=== PATIENT | female | born 1955 | race Caucasian/White ===

== ENCOUNTER 2016-09-19 11:59 | Emergency (ER) | payer BC ==
[2016-09-19 13:20] VITALS: BP 126/69
--- NOTE | 2016-09-19 13:48 | UC ---
Throat Pain/Nasal Pedro Luis HPI - HPI Summary HPI Summary: complaint of cough and nasal congestion that started 3-4 days ago headaches more on left than right sore throat left ear pain when she coughs feel raspy hearing wheezing occasionally in chest denies fever but has had chills took tylenol with some relief of headache hx of pneumothorax -with surgical repair 5 years ago and pneumonia multiple times - History of Current Complaint Chief Complaint: UCRespiratory Stated Complaint: COUGH,SINUS COMPLAINT Time Seen by Provider: 09/19/16 13:41 Hx Obtained From: Patient Hx Last Menstrual Period: 2002 - Allergies/Home Medications Allergies/Adverse Reactions: Allergies Allergy/AdvReac Type Severity Reaction Status Date / Time No Known Allergies Allergy Verified 09/19/16 13:20 PMH/Surg Hx/FS Hx/Imm Hx Previously Healthy: Yes Endocrine History Of: Denies: Diabetes Cardiovascular History Of: Denies: Cardiac Disorders, Hypertension Respiratory History Of: Denies: Asthma Cancer History Of: Denies: Breast Cancer - Surgical History Surgical History: Yes Surgery Procedure, Year, and Place: lung - pneumothorax 1992 - Family History Known Family History: Negative: Cardiac Disease, Hypertension, Diabetes - Social History Occupation: Retired Alcohol Use: Occasionally Substance Use Type: None Smoking Status (MU): Former Smoker Type: Cigarettes Amount Used/How Often: 1/4 PPD Length of Time of Smoking/Using Tobacco: 10 Years Have You Smoked in the Last Year: No When Did the Patient Quit Smoking/Using Tobacco: ~1988 - Immunization History Most Recent Influenza Vaccination: Not the season Most Recent Tetanus Shot: 09/29/13 Review of Systems Constitutional: Negative Skin: Negative Eyes: Negative ENT: Sore Throat, Ear Ache, Nasal Discharge Respiratory: Cough Cardiovascular: Negative Gastrointestinal: Negative Genitourinary: Negative Motor: Negative Neurovascular: Negative Musculoskeletal: Negative Neurological: Negative Psychological: Negative All Other Systems Reviewed And Are Negative: Yes Physical Exam Triage Information Reviewed: Yes Appearance: No Pain Distress, Well-Nourished Vital Signs: Initial Vital Signs Temp 98.8 F 09/19/16 13:14 Pulse 83 09/19/16 13:14 Resp 20 09/19/16 13:14 BP 126/69 09/19/16 13:14 Pulse Ox 100 09/19/16 13:14 Vital Signs Reviewed: Yes Eyes: Positive: Conjunctiva Clear ENT: Positive: Pharyngeal erythema, Nasal congestion, Nasal drainage, TMs normal. Negative: Tonsillar swelling Neck: Positive: No Lymphadenopathy Respiratory: Positive: Rhonchi - in LLL, Wheezing - throughout Cardiovascular: Positive: RRR, No Murmur, Pulses Normal Abdomen Description: Positive: Nontender, Soft Bowel Sounds: Positive: Present Musculoskeletal: Positive: No Edema Neurological: Positive: Alert Psychological Exam: Normal Skin Exam: Normal Throat Pain/Nasal Course/Dx - Course Course Of Treatment: exam completed. will treat with zpack steriods and aluterol d/t wheezing and rhonchi followup with PCP. chest x-ray negative - Differential Dx/Diagnosis Differential Diagnosis/HQI/PQRI: URI, Other - bronchitis, pneumonia Provider Diagnoses: bronchitis Discharge - Discharge Plan Condition: Stable Disposition: HOME Prescriptions: Albuterol HFA INHALER* [Ventolin HFA Inhaler*] 2 puff INH Q4H PRN #1 mdi PRN Reason: Wheezing Azithromycin TAB* [Zithromax TAB (Z-MARIBEL) 250 mg #6 tabs] 2 tab PO .TODAY, THEN 1 DAILY #1 maribel predniSONE TAB* [Deltasone TAB*] 50 mg PO DAILY #5 tab Patient Education Materials: Acute Bronchitis (ED) Referrals: Zee Mayorga MD [Primary Care Provider] - [facility] [place]] Additional Instructions: Please take antibiotic as directed Use your albuterol inhaler every 4-6 hours when needed for wheezing, shortness of breath or uncontrolled coughing. Increase fluids and rest Take acetaminophen or ibuprofen for fever or pain Please review your discharge instructions. If your symptoms do not improve please call your primary care provider or return to urgent care.
[2016-09-19] MEDS ORDERED: Albuterol/Ipratropium NEB.SOL* Albuterol 2.5 MG/Ipratropium 0.5 MG 3 ML INH ONE (13:54)
--- NOTE | 2016-09-19 14:05 | RAD ---
INDICATION: Cough and chills. COMPARISON: There are no prior studies available for comparison. TECHNIQUE: Dual-energy PA and lateral views of the chest were obtained. FINDINGS: The heart is within normal limits in size. Mediastinal and hilar contours appear within normal limits. The lungs are hyperinflated and clear. No pleural effusion is seen. IMPRESSION: NO EVIDENCE FOR ACUTE FINDING.
== END 2016-09-19 14:35 | disposition home or self-care (01) ==
LOC: UCCORT 11:59
DX: J40 Bronchitis, not specified as acute or chronic (principal); F17.210 Nicotine dependence, cigarettes, uncomplicated
CPT/HCPCS: 71020; 99212; A9270-GY; G0463

== ENCOUNTER 2017-04-06 14:04 | Emergency (ER) | payer BC ==
[2017-04-06 14:14] VITALS: BP 134/64
--- NOTE | 2017-04-06 14:30 | UC ---
Headache HPI - HPI Summary HPI Summary: 61 yo female with headache since 6 AM mild initially primarily left temporal about 10 AM developed bilateral jaw paresthesias For the past 2 hours MCBRIDE has been 8/10 some photophobia no n/v/d no f/c no neck pain or stiffness no cp or sob - History Of Current Complaint Chief Complaint: UCGeneralIllness Stated Complaint: HEADACHE LIGHT HEADED TINGLING IN FACE Time Seen by Provider: 04/06/17 14:07 Hx Obtained From: Patient Hx Last Menstrual Period: 2002 Onset/Duration: Gradual Onset, Lasting Hours Onset Of Symptoms: Gradual Initially Headache Was: "Worst Headache Ever" - no hx of similar MCBRIDE, Mild Currently Pain Is: Current Pain Scale(0-10)= - 8 Pain Intensity: 8 Pain Scale Used: 0-10 Numeric Timing: Constant Character: Dull, Throbbing Location of Headache: Temporal Allevating Factors: Nothing Associated Signs And Symptoms: Positive: Dizziness - Allergies/Home Medications Allergies/Adverse Reactions: Allergies Allergy/AdvReac Type Severity Reaction Status Date / Time No Known Allergies Allergy Verified 04/06/17 14:09 Home Medications: Home Medications NK [No Home Medications Reported] 04/06/17 [History Confirmed 04/06/17] PMH/Surg Hx/FS Hx/Imm Hx Previously Healthy: Yes - Surgical History Surgical History: Yes Surgery Procedure, Year, and Place: lung - pneumothorax 1992 - Family History Known Family History: Negative: Cardiac Disease, Hypertension, Diabetes - Social History Alcohol Use: None Substance Use Type: None Smoking Status (MU): Former Smoker Type: Cigarettes Amount Used/How Often: 1/4 PPD Length of Time of Smoking/Using Tobacco: 10 Years Have You Smoked in the Last Year: No When Did the Patient Quit Smoking/Using Tobacco: ~1988 - Immunization History Most Recent Influenza Vaccination: Not the season Most Recent Tetanus Shot: 09/29/13 Review of Systems Constitutional: Negative Skin: Negative Eyes: Negative ENT: Negative Respiratory: Negative Cardiovascular: Negative Gastrointestinal: Negative Genitourinary: Negative Motor: Negative Neurovascular: Negative Musculoskeletal: Negative Neurological: Headache Psychological: Negative All Other Systems Reviewed And Are Negative: Yes Physical Exam Triage Information Reviewed: Yes Appearance: Well-Appearing, No Pain Distress, Well-Nourished Vital Signs: Initial Vital Signs Temp 98.6 F 04/06/17 14:09 Pulse 75 04/06/17 14:09 Resp 20 04/06/17 14:09 BP 134/64 04/06/17 14:09 Pulse Ox 100 04/06/17 14:09 Vital Signs Reviewed: Yes Eyes: Positive: Conjunctiva Clear ENT Exam: Other - LEFT temporal artery tenderness ENT: Positive: Normal ENT inspection, Hearing grossly normal, Nasal congestion, TMs normal. Negative: Nasal drainage, Trismus, Muffled/hoarse voice Dental Exam: Normal Neck: Positive: Supple, Nontender Respiratory: Positive: Lungs clear, Normal breath sounds, No respiratory distress Cardiovascular: Positive: RRR, No Murmur Musculoskeletal: Positive: Strength Intact, ROM Intact, No Edema Neurological: Positive: Alert, Muscle Tone Normal, Other: - cn2-12 intact normal gait fundi benign Psychological Exam: Normal Skin Exam: Normal Diagnostics - EKG Cardiac Rate: NL Cardiac Rhythm: Sinus: Normal Ectopy: None ST Segment: Normal - normal EKG Headache Course/Dx - Course Course Of Treatment: d/w Lora Hogan PEDIATRIC CLINICAL NURSE SPECIALIST. accepts pt [facility]. decline EMS. AMA signed - Differential Dx/Diagnosis Differential Diagnosis/HQI/PQRI: Subarachnoid Hemorrhage, Temporal Arteritis, Other Provider Diagnoses: Headache of uncertain cause Discharge - Discharge Plan Condition: Fair Disposition: TRANS HIGHER LVL OF CARE FAC
== END 2017-04-06 14:45 | disposition short-term general hospital (02) ==
LOC: UCCORT 14:04
DX: R51 Headache (principal); Z87.891 Personal history of nicotine dependence
CPT/HCPCS: 93005; 99212; G0463

== ENCOUNTER 2017-09-21 14:48 | Emergency (ER) | payer BC ==
[2017-09-21 17:24] VITALS: BP 123/73
[2017-09-21] MEDS ORDERED: Acetaminophen TAB* 325 MG PO ONE (17:38)
--- NOTE | 2017-09-21 17:38 | UC ---
FLU HPI - HPI Summary HPI Summary: Pt c/o of sudden onset of fever, chills, body aches X 2 days. Has known exposure to flu. - History of Current Complaint Chief Complaint: UCGeneralIllness Stated Complaint: FEVER, LT HEADED, ACHY Time Seen by Provider: 09/21/17 17:14 Hx Obtained From: Patient Hx Last Menstrual Period: 2002 ?: No Onset/Duration: Sudden Onset, Lasting Days, Still Present Severity Currently: Mild Severity Initially: Mild Pain Intensity: 6 Associated Signs & Symptoms: Positive: Fever, Myalgia, Headache Related Hx: Possible Flu/Infectious Exposure - Risk Factors Influenza Risk Factors: Negative - Allergy/Home Medications Allergies/Adverse Reactions: Allergies Allergy/AdvReac Type Severity Reaction Status Date / Time No Known Allergies Allergy Verified 09/21/17 17:19 PMH/Surg Hx/FS Hx/Imm Hx Previously Healthy: Yes - Surgical History Surgical History: Yes Surgery Procedure, Year, and Place: lung - pneumothorax 1992 - Family History Known Family History: Negative: Cardiac Disease, Hypertension, Diabetes - Social History Occupation: Employed Full-time Lives: With Family Alcohol Use: Occasionally Substance Use Type: None Smoking Status (MU): Former Smoker Type: Cigarettes Amount Used/How Often: 1/4 PPD Length of Time of Smoking/Using Tobacco: 10 Years Have You Smoked in the Last Year: No When Did the Patient Quit Smoking/Using Tobacco: ~1988 - Immunization History Most Recent Influenza Vaccination: Not the season Most Recent Tetanus Shot: 09/29/13 Review of Systems Constitutional: Fever, Chills, Fatigue Skin: Negative Eyes: Negative ENT: Negative Respiratory: Negative Cardiovascular: Negative Gastrointestinal: Negative Genitourinary: Negative Motor: Negative Neurovascular: Negative Musculoskeletal: Myalgia Neurological: Headache Psychological: Negative Is Patient Immunocompromised?: No All Other Systems Reviewed And Are Negative: Yes Physical Exam Triage Information Reviewed: Yes Appearance: Ill-Appearing Vital Signs: Initial Vital Signs Temp 100.3 F 09/21/17 17:19 Pulse 114 09/21/17 17:19 Resp 16 09/21/17 17:19 BP 123/73 09/21/17 17:19 Pulse Ox 99 09/21/17 17:19 Vital Signs Reviewed: Yes Eye Exam: Normal ENT Exam: Normal Dental Exam: Normal Neck exam: Normal Respiratory Exam: Normal Cardiovascular Exam: Normal Musculoskeletal Exam: Normal Neurological Exam: Normal Psychological Exam: Normal Skin Exam: Normal Diagnostics - Laboratory Diagnostic Studies Completed/Ordered: negative rapid flu Flu Course/Dx - Differential Dx/Diagnosis Differential Diagnosis/HQI/PQRI: Influenza, Upper Respiratory Infection Provider Diagnoses: Viral syndrome Discharge - Discharge Plan Condition: Stable Disposition: HOME Prescriptions: Oseltamivir CAP* [Tamiflu CAP*] 75 mg PO Q12H #10 cap Patient Education Materials: Viral Syndrome (ED) Referrals: Patricia Mendoza MD [Primary Care Provider] - If Needed
== END 2017-09-21 17:50 | disposition home or self-care (01) ==
LOC: UCCORT 14:48
DX: B34.9 Viral infection, unspecified (principal); Z20.828 Contact with and (suspected) exposure to other viral communicable diseases; Z87.891 Personal history of nicotine dependence
CPT/HCPCS: 87502; 99212; A9270-GY; G0463

== ENCOUNTER 2017-09-24 09:55 | Emergency (ER) | payer BC ==
[2017-09-24 11:55] VITALS: BP 105/76
[2017-09-24] MEDS ORDERED: diPHENhydraMINE LIQ* 12.5 MG/5 ML UDC PO ONE (12:43)
--- NOTE | 2017-09-24 12:50 | UC ---
Skin Complaint HPI - HPI Summary HPI Summary: pt dx flu like illness and was tx with tamiflu. she took it for 2.5 days. today , she noted her palms to be itchy and red. after showering she became more red and itchy. no cough or sob. no n/v/d. no other new exposures or medications. didn't take the tamiflu today. notes flu s/s's improving with only mild fever and achy. - History of Current Complaint Chief Complaint: UCAllergicReaction Time Seen by Provider: 09/24/17 12:32 Stated Complaint: POSSIBLE ALLERGIC REACTION Hx Obtained From: Patient Hx Last Menstrual Period: 2002 ?: No Onset/Duration: Gradual Onset Skin Exposure Onset/Duration: Hours Ago - this am Timing: Constant Onset Severity: Mild Current Severity: Moderate Pain Intensity: 5 Location: Generalized Character: Pruritus, Hives Aggravating Factor(s): Showering Alleviating Factor(s): Nothing Associated Signs & Symptoms: Positive: Rash. Negative: Nausea, Cough, Wheezing , Chest Pain, Abdominal Pain Related History: Recent change in medication - Allergy/Home Medications Allergies/Adverse Reactions: Allergies Allergy/AdvReac Type Severity Reaction Status Date / Time oseltamivir [From Tamiflu] Allergy Rash And Verified 09/24/17 11:49 Itching Home Medications: Home Medications Acetaminophen [Pain Relief] 2 tab PO Q8HR PRN 09/24/17 [History Confirmed ] Review of Systems Constitutional: Fever Skin: Negative Eyes: Negative ENT: Negative Respiratory: Negative Cardiovascular: Negative Gastrointestinal: Negative Genitourinary: Negative Motor: Negative Neurovascular: Negative Musculoskeletal: Myalgia Neurological: Negative Psychological: Negative Is Patient Immunocompromised?: No All Other Systems Reviewed And Are Negative: Yes PMH/Surg Hx/FS Hx/Imm Hx Previously Healthy: Yes - Surgical History Surgical History: Yes Surgery Procedure, Year, and Place: lung - pneumothorax 1992 - Family History Known Family History: Negative: Cardiac Disease, Hypertension, Diabetes - Social History Occupation: Retired Lives: With Family Alcohol Use: Occasionally Substance Use Type: None Smoking Status (MU): Former Smoker Type: Cigarettes Amount Used/How Often: 1/4 PPD Length of Time of Smoking/Using Tobacco: 10 Years Have You Smoked in the Last Year: No When Did the Patient Quit Smoking/Using Tobacco: ~1988 - Immunization History Most Recent Influenza Vaccination: Not the Most Recent Tetanus Shot: 09/29/13 Physical Exam Triage Information Reviewed: Yes Appearance: Well-Appearing Vital Signs: Initial Vital Signs Temp 100.1 F 09/24/17 11:50 Pulse 90 09/24/17 11:50 Resp 16 09/24/17 11:50 BP 105/76 09/24/17 11:50 Pulse Ox 100 09/24/17 11:50 Vital Signs Reviewed: Yes Eye Exam: Normal ENT Exam: Normal Neck exam: Normal Respiratory: Positive: Lungs clear, Normal breath sounds, No respiratory distress Cardiovascular: Positive: RRR, No Murmur Abdomen Description: Positive: Nontender, No Organomegaly, Soft Bowel Sounds: Positive: Present Musculoskeletal: Positive: Strength Intact, ROM Intact Neurological: Positive: Alert Psychological: Positive: Age Appropriate Behavior Skin: Positive: Other - diffuse red-warm rash to palms, soles, trunk and extremities. not petechial, scaley, blistering and does tea. Course/Dx - Course Course Of Treatment: NO CONCERN FOR DAVIS NEAL SYNDROM OR TEN. THIS RASH LOOKS URICARIAL. UTD DOES LIST RASH A POTENTIAL SIDE EFFECT. WILL HAVE PT D/ C THE DRUG. PT TO TAKE OTC BENADRYL PER LABEL. WILL AVOID STEROIDS AT THIS TIME. NEED TO F/U PCP IN 1-2 DAYS STRESSED OR SOONER IF WORSE. - Diagnoses Provider Diagnoses: RASH. PROBABLE DRUG REACTION. Discharge - Discharge Plan Condition: Stable Disposition: HOME Patient Education Materials: Acute Rash (ED), Urticaria (ED) Referrals: Patricia Mendoza MD [Primary Care Provider] - 1 Day Additional Instructions: STOP THE TAMIFLU. TAKE BENADRYL OVER THE COUNTER PER LABEL NEEDED FOR ITCH/ RASH. SEEK RECHECK IMMEDIATELY FOR ANY CHANGES OR WORSENING.
== END 2017-09-24 13:45 | disposition home or self-care (01) ==
LOC: UCCORT 09:55
DX: R21 Rash and other nonspecific skin eruption (principal); Z87.891 Personal history of nicotine dependence
CPT/HCPCS: 99212; A9270-GY; G0463

== ENCOUNTER 2018-03-10 17:40 | Emergency (ER) | payer BC ==
[2018-03-10] MEDS ORDERED: Lidocaine 1%* 5 ML VIAL INJ ONE (18:00)
--- NOTE | 2018-03-10 18:00 | UC ---
Skin Complaint HPI - HPI Summary HPI Summary: pain and swelling around R middle fingernail. onset 1-2 days ago. denies injury - History of Current Complaint Chief Complaint: UCUpperExtremity Time Seen by Provider: 03/10/18 17:55 Stated Complaint: RT MIDDLE FINGER COMPLAINT Hx Obtained From: Patient Hx Last Menstrual Period: N/A Onset/Duration: Gradual Onset Timing: Constant Pain Intensity: 9 Aggravating Factor(s): Touch Alleviating Factor(s): Nothing - Allergy/Home Medications Allergies/Adverse Reactions: Allergies Allergy/AdvReac Type Severity Reaction Status Date / Time Penicillins Allergy Intermediate Rash Verified 03/10/18 17:53 oseltamivir [From Tamiflu] Allergy Rash And Verified 03/10/18 17:53 Itching Home Medications: Home Medications NK [No Home Medications Reported] 03/10/18 [History Confirmed 03/10/18] Review of Systems Constitutional: Negative Skin: Other - pain/swelling around R middle fingernail Eyes: Negative ENT: Negative Respiratory: Negative Cardiovascular: Negative Gastrointestinal: Negative Genitourinary: Negative Motor: Negative Neurovascular: Negative Musculoskeletal: Negative Neurological: Negative Psychological: Negative Is Patient Immunocompromised?: No All Other Systems Reviewed And Are Negative: Yes PMH/Surg Hx/FS Hx/Imm Hx Previously Healthy: Yes - Surgical History Surgical History: Yes Surgery Procedure, Year, and Place: lung - pneumothorax 1992 - Family History Known Family History: Negative: Cardiac Disease, Hypertension, Diabetes - Social History Occupation: Retired Lives: With Family Alcohol Use: Occasionally Substance Use Type: None Smoking Status (MU): Former Smoker Type: Cigarettes Amount Used/How Often: 1/4 PPD Length of Time of Smoking/Using Tobacco: 10 Years Have You Smoked in the Last Year: No When Did the Patient Quit Smoking/Using Tobacco: ~1988 - Immunization History Most Recent Influenza Vaccination: Not the season Most Recent Tetanus Shot: 09/29/13 Vaccination Up to Date: Yes Physical Exam Triage Information Reviewed: Yes Appearance: Well-Appearing Vital Signs: Initial Vital Signs Temp 98.7 F 03/10/18 17:47 Pulse 75 03/10/18 17:47 Resp 17 03/10/18 17:47 BP 123/72 03/10/18 17:47 Pulse Ox 99 03/10/18 17:47 Vital Signs Reviewed: Yes Eyes: Positive: Conjunctiva Clear ENT: Positive: Normal ENT inspection Neck: Positive: Supple, Nontender Respiratory: Positive: Lungs clear, Normal breath sounds Cardiovascular: Positive: RRR, No Murmur Abdomen Description: Positive: Nontender, No Organomegaly, Soft Bowel Sounds: Positive: Present Musculoskeletal: Positive: ROM Intact Neurological: Positive: Alert Psychological: Positive: Age Appropriate Behavior Skin Exam: Normal, Other - Base of R middle fingernail with moderate erythema and swelling c/w paronychia. there is a red streak from the paronychia up ulnar side of finger to dorsal wrist. no joint pain with rom and non tender. finger with full s/v/m function. Course/Dx - Course Course Of Treatment: Procedure: time out done. site prep betadine. local with tip of 30G needle. superficial stab with tip of #11 blade, moderate puss drained and culture obtained. Site soaked with Hibiclens and water. Bacitracin to site then bandaide. Only slight bleeding. tolerated well. sterile technique used. Since there is residual erythema and lymphangitis, lazara tx with rocephine then keflex at home. pt notes pcn allergy years ago but states only a rash. no sob, swelling or anaphylaxis. pt advised of risk for rxn to rocephine based on pcn rxn hx is very slight. tetanus is UTD(<10 years ago). - Diagnoses Provider Diagnoses: R middle finger paronychia I&D with secondary cellulitis and lympangitis. Discharge - Sign-Out/Discharge Documenting (check all that apply): Patient Departure - Discharge Plan Condition: Stable Disposition: HOME Patient Education Materials: Paronychia (ED), Lymphangitis (ED) Referrals: Patricia Mendoza MD [Primary Care Provider] - 2 Days Additional Instructions: GO TO THE ER FOR ANY WORSENING - Billing Disposition and Condition Condition: STABLE Disposition: Home
[2018-03-10] MEDS ORDERED: cefTRIAXone VIAL(*) 1,000 MG VIAL IM ONE (18:37)
[2018-03-10] MEDS ORDERED: Lidocaine 1% MPF* 2 ML VIAL ONE (18:53)
[2018-03-10 20:14] VITALS: BP 119/77
--- NOTE | 2018-03-11 14:46 | UC ---
- Progress Note Progress Note: Pt wound culture is MRSA positive. Please call pt and tell her to stop cephalexin and begin Bactrim RX Q12h X 10 days. If no imporvment to seek care by PCP or ER. . Discharge - Sign-Out/Discharge Documenting (check all that apply): Patient Departure - Discharge Plan Condition: Stable Disposition: HOME Prescriptions: Sulfamethox/Trimethoprim DS* [Bactrim DS 800/160 TAB*] 1 tab PO Q12H #20 tab Patient Education Materials: Paronychia (ED), Lymphangitis (ED) Referrals: Patricia Mendoza MD [Primary Care Provider] - 2 Days Additional Instructions: GO TO THE ER FOR ANY WORSENING - Billing Disposition and Condition Condition: STABLE Disposition: Home
== END 2018-03-10 20:12 | disposition home or self-care (01) ==
LOC: UCCORT 17:40
DX: L03.011 Cellulitis of right finger (principal); B95.62 Methicillin resistant Staphylococcus aureus infection as the cause of diseases classified elsewhere; Z88.0 Allergy status to penicillin; Z88.8 Allergy status to other drugs, medicaments and biological substances; Z87.891 Personal history of nicotine dependence
CPT/HCPCS: 10060; 87070; 87077; 87186; 87205; 87640; 87641; 96372; 99212; G0463; J0696